=== PATIENT | male | born 2000 | race Caucasian/White ===

== ENCOUNTER 2022-03-05 19:17 | Emergency (ER) | payer OTHER, SELFPAY ==
--- NOTE | 2022-03-05 19:52 | ED.MALEGU ---
HPI - Male Genitourinary General Chief complaint: Urogenital-Male Stated complaint: uti complaint Time Seen by Provider: 03/05/22 19:52 Source: patient and RN notes reviewed Mode of arrival: ambulatory Limitations: no limitations History of Present Illness HPI Narrative: 21-year-old male transitioning from female, presented for complaint of burning with urination, brown /bloody discharge and suprapubic abdominal pain over the last 3 days. Endorses concern for STD/UTI. Denies urgency, frequency, flank pain, nausea, vomiting, fever or chills. Reports wearing a sanitary pad for the drainage, and states no longer has menses. Endorses new female sexual partner but denies known exposure. Related Data Home Medications Medication Instructions Recorded Confirmed bupropion HCl 150 mg 24 hr tablet, 150 mg PO QAM 03/05/22 03/05/22 extended release (Wellbutrin XL) levocetirizine 5 mg tablet (Xyzal) 5 mg PO DAILY 03/05/22 03/05/22 metoprolol succinate 25 mg 25 mg PO DAILY 03/05/22 03/05/22 tablet,extended release 24 hr montelukast 10 mg tablet 10 mg PO DAILY 03/05/22 03/05/22 sertraline 50 mg tablet 50 mg PO DAILY 03/05/22 03/05/22 testosterone 20.25 mg/1.25 gram 1 pump topical DAILY 03/05/22 03/05/22 (1.62 %) transdermal gel pump Allergies Allergy/AdvReac Type Severity Reaction Status Date / Time No Known Allergies Allergy Verified 03/05/22 19:54 Review of Systems Review of Systems: CONSTITUTIONAL: Denies body aches, fever, chills, or sweats. CARDIOVASCULAR: Denies chest pain, palpitations, or edema. RESPIRATORY: Denies cough or dyspnea. GASTROINTESTINAL: Denies abdominal pain, nausea, vomiting, or diarrhea. GENITOURINARY: Per HPI SKIN: Denies rash, itching, or wounds. MUSCULOSKELETAL: Denies back pain or myalgia. PMFSH Comments At time of signature, I have reviewed and agree with nursing past medical, surgical, social and family history unless otherwise noted. Please see nursing chart for further information. There is no relevant family history pertinent to the presenting complaint Exam Narrative: GENERAL: Well-appearing ENT: Mucous membranes pink and moist. NECK: Normal AROM. Supple. CHEST: No respiratory distress. Clear to auscultation. HEART: Regular rate and rhythm. ABDOMEN: Soft, suprapubic tenderness, nondistended, normal active bowel sounds. No CVA tenderness SKIN: Warm, dry, no rash. NEURO: Alert and oriented x3. PSYCH: Normal affect. Course Course Emergency Course: Patient is aware of diagnosis, understands and agrees to treatment plan. Anticipatory guidance given. Patient agrees to follow-up as directed and is aware of reasons to seek care at the emergency department. Portions of this record may have been created with voice recognition software Level of Care: Express Care Visit Vital Signs Vital signs: Reviewed MDM - Male Genitourinary MDM Narrative Medical decision making narrative: Patient presenting with concern for STD/UTI. Urine specimen collected for UA, GC, chlamydia, trich. Informed Pt will be contacted w/ results when they become available if they are positive. Discussed with patient that it takes up to 7 days for results of cultures to be released and explained that we may treat empirically at this time. Agreeable to treatment at this time, for gonorrhea and Chlamydia. Aware he may need Rx to treat for UTI and/or trich. I have instructed the patient to return to the ER at any time if there are any new or worsening symptoms. The patient expressed understanding of and agreement with this plan. Differential Diagnosis Differential diagnosis: Likely urinary tract infection and other (std, cervicitis) Discharge Plan Discharge Clinical Impression: Concern about STD in male without diagnosis Patient Disposition: Home, Self-Care Condition: Stable Instructions: Sexually Transmitted Diseases (ED) Additional Instructions: Your urine sample today was sen
[2022-03-05] MEDS: cefTRIAXone 500 MG, LIDOCAINE HCL 1% LOCAL INJ 1 ML IM (20:38)
[2022-03-05 21:14] VITALS: BP 121/68; PULSE 87; RESP 18; TEMP 36.9; O2SAT 100
== END 2022-03-05 20:53 | disposition home or self-care (01) ==
PROVIDERS: Emergency Provider Nurse Practitioner Family; PCP Family Medicine
DX: Z20.2 Contact with and (suspected) exposure to infections with a predominantly sexual mode of transmission (principal); J45.909 Unspecified asthma, uncomplicated; F84.0 Autistic disorder; F41.9 Anxiety disorder, unspecified; F32.A Depression, unspecified
CPT/HCPCS: 87077; 87086; 87186; 87491; 87591; 87661; 96372; 99213; G0463; J0696

== ENCOUNTER 2022-08-01 22:54 | Emergency (ER) | payer OTHER, SELFPAY ==
--- NOTE | ~2022-08-01 | XR_ITS ---
Clinical Indication: Tachycardia PA and lateral views of the chest: Comparison: None Findings: The lungs are clear, without evidence of focal consolidation or pleural effusion. Cardiome diastinal silhouette is within normal limits. Bones and soft tissues are unremarkable. Impression: Normal chest. Reviewed, dictated and finalized at location . Impression: Normal chest.
--- NOTE | 2022-08-01 22:55 | ECG_ITS ---
Measurements Intervals [place] Rate: 144 P: 82 SD: 137 QRS: 64 QRSD: 88 T: 63 QT: 342 QTc: 530 Interpretive Statements SINUS TACHYCARDIA NONSPECIFIC T-WAVE ABNORMALITY- INFERIOR LEADS ABNORMAL ECG NO PREVIOUS ECG AVAILABLE FOR COMPARISON Electronically Signed On 08-02-2022 6:20:35 CDT by Guilherme Lee D.O.
[2022-08-01 23:01] VITALS: BP 142/80; PULSE 147; RESP 20; TEMP 37.7; O2SAT 100
[2022-08-01 23:13] LABS: Basophils Absolute Auto 0.1 K/mm3 (0.0-0.1); Basophils Percent Auto 0.5 % (0.2-1.2); Eosinophils Absolute Auto 0.2 K/mm3 (0-0.3); Eosinophils Percent Auto 1.9 % (0-4.4); Hematocrit 45.6 % (42.0-52.0); Hemoglobin 15.3 g/dL (14.0-18.0); Immature Granulocyte Absolute 0.02 K/mm3 (0.00-0.031); Immature Granulocyte Percent A 0.2 % (0-0.5); Lymphocytes Percent Auto 34.7 % (18.3-44.2); Mean Corpuscular HGB Conc 33.6 g/dl (32-36); Mean Corpuscular Hemoglobin 29.8 pg (26-34); Mean Corpuscular Volume 88.9 fl (80-100); Mean Platelet Volume 8.9 fl (7.4-10.4); Monocytes Absolute Auto 1.1 K/mm3 (0.1-0.6); Monocytes Percent Auto 9.7 % (2.6-8.5); Neutrophils Absolute Auto 6.3 K/mm3 (1.3-6.7); Platelet Count Result 277 k/mm3 (150-375); Red Blood Count 5.13 M/mm3 (4.6-6.20); Red Cell Distribution Width 12.3 % (11.5-14.5); White Blood Count 11.8 K/mm3 (4.5-10.0)
[2022-08-01 23:23] LABS: Prothrombin Time 13.3 Seconds (11.1-14.7)
[2022-08-01 23:24] LABS: Partial Thromboplastin Time 32.5 SECONDS (22.3-36.8)
[2022-08-01 23:28] LABS: Alanine Aminotransferase 31 U/L (6-50); Albumin Level 4.9 g/dL (3.5-5.1); Alkaline Phosphatase 72 U/L (38-126); Anion Gap 9 mmol/L (8-16); Aspartate Amino Transferase 31 U/L (17-59); Bilirubin,Total 0.6 mg/dL (0.2-1.3); Blood Urea Nitrogen 11 mg/dL (9-20); Calcium 8.8 mg/dL (8.4-10.2); Carbon Dioxide 30 mmol/L (22-30); Chloride 99 mmol/L (98-107); Estimated CRCL calculation 116 ml/min; Estimated Glomerular Filt Rate > 60; Glucose 116 mg/dL (65-110); Lipase 203 U/L (23-300); Potassium 3.5 mmol/L (3.4-5.0); Sodium 138 mmol/L (137-145)
[2022-08-01] MEDS: ASPIRIN 81 MG CHEWABLE TABLET 324 MG PO (23:28)
[2022-08-01 23:39] LABS: Troponin I < 0.012 ng/mL (0.000-0.034)
[2022-08-02 00:32] VITALS: PULSE 121
[2022-08-02] MEDS: METOPROLOL TARTRATE INJ 5 MG/5 ML VIAL IV PUSH (00:32)
[2022-08-02] MEDS: SODIUM CHLORIDE 0.9% IV 2,000 ML 999 ML IV CONT (00:33)
[2022-08-02] MEDS: LORazepam INJ (*CRX) 2 MG/ML VIAL 0.5 MG IV PUSH (00:38)
[2022-08-02 00:42] LABS: NT Pro B Type Natriuretic Pept < 20 pg/mL (19.9-100)
[2022-08-02 00:52] VITALS: BP 115/69; PULSE 111; RESP 17; O2SAT 98
[2022-08-02 00:52] LABS: D Dimer 0.34 ug/mL (<0.48)
--- NOTE | 2022-08-02 01:02 | ED.GENADULT ---
HPI - General Adult General Chief complaint: Chest Pain Stated complaint: elevated heart rate Time Seen by Provider: 08/01/22 23:15 History of Present Illness HPI narrative: This is a 21-year-old transgender female to male using hormone replacement presenting with palpitations. Patient has been diagnosed with idiopathic tachycardia by his primary care physician and has been placed on metoprolol. Patient noticed that several hours prior to arrival he started to have palpitations that were at the top of his chest, there nonradiating, 4/10 intensity and getting better. Patient states the symptoms improved when he laid down and tried to relax. The symptoms were preceded by taking a THC edible. They are associated with anxiety and some shortness of breath. No wheezing, no fevers no chills no chest pain, no lower extremity edema, no recent trauma or surgeries Related Data Home Medications Medication Instructions Recorded Confirmed bupropion HCl 150 mg 24 hr tablet, 150 mg PO QAM 03/05/22 03/05/22 extended release (Wellbutrin XL) levocetirizine 5 mg tablet (Xyzal) 5 mg PO DAILY 03/05/22 03/05/22 metoprolol succinate 25 mg 25 mg PO DAILY 03/05/22 03/05/22 tablet,extended release 24 hr montelukast 10 mg tablet 10 mg PO DAILY 03/05/22 03/05/22 sertraline 50 mg tablet 50 mg PO DAILY 03/05/22 03/05/22 testosterone 1 pump topical DAILY 03/05/22 03/05/22 Allergies Allergy/AdvReac Type Severity Reaction Status Date / Time No Known Allergies Allergy Verified 03/05/22 19:54 [facility] Past Medical History Medical History Asthma Tachycardia Transgender person on hormone therapy Exam Narrative: APPEARANCE: No apparent distress. resting comfortably Head: atraumatic. EYES: EOMI, NOSE: Atraumatic NECK: Trachea midline RESPIRATORY: No increased rate of breathing clear to auscultation CARDIOVASCULAR: RRR, no peripheral edema ABDOMINAL: Non-distended MUSCULOSKELETAl: No obvious deformities NEURO: Alert. Moving 4/4 extremities SKIN:: Warm, dry. Normal color PSYCHIATRIC: Normal affect Course Vital Signs Vital signs: Vital Signs Temperature 99.8 F H 08/01/22 23:01 Pulse Rate 147 H 05/17/23 23:01 Respiratory Rate 20 08/01/22 23:01 Blood Pressure 142/80 H 08/01/22 23:01 Pulse Oximetry 100 08/01/22 23:01 Oxygen Delivery Room Air 08/01/22 23:01 Temperature 99.8 F H 08/01/22 23:01 Pulse Rate 111 H 08/02/22 00:52 Respiratory Rate 17 08/02/22 00:52 Blood Pressure 115/69 08/02/22 00:52 Pulse Oximetry 98 08/02/22 00:52 Oxygen Delivery Room Air 08/01/22 23:01 Medical Decision Making MDM Narrative Medical decision making narrative: -Presentation: 21-year-old transgender on testosterone therapy presenting with tachycardia and shortness of breath. -DDX includes but is not limited to: Pulmonary embolism, anxiety, Idiopathic tachycardia, SVT, THC side effect -Co-morbidities complicating care: gender reassignment with hormone therapy, asthma, anxiety -Social determinants of health: patient works at [employer] and lives with his girlfriend -External Chart Review: none -Hx from independent Sources: girlfriend at bedside -Discussion of Management/Consultants: none -Independent interpretation of studies: lab work including CBC BMP troponins BNP and D-dimer were all within normal limits. Chest x-ray unremarkable Independent EKG interpretation: Rhythm [sinus], Rate [144], [place] -[normal], AR -[normal], QRS [narrow], QTC [normal], T waves -[negative for concerning inversions], ST Segments - [Negative for concerning elevations] Final interpretations: [Normal Sinus Rhythm] Dx tests considered but not ordered: none -Procedures: none -Interventions: 2 L normal saline, 0.5 mg Ativan, 5 mg IV Lopressor -Shared decision making / Disposition: on re-evaluation the patient's heart rate is improved 107. The patient's palpitat
[2022-08-02 01:20] VITALS: BP 114/75; PULSE 107; RESP 18; O2SAT 97
[2022-08-02 02:28] VITALS: BP 120/58; PULSE 106; RESP 20; O2SAT 97
== END 2022-08-02 02:29 | disposition home or self-care (01) ==
PROVIDERS: Emergency Provider Emergency Medicine; PCP Family Medicine
DX: R00.2 Palpitations (principal); R00.0 Tachycardia, unspecified; R06.02 Shortness of breath; Z79.890 Hormone replacement therapy
CPT/HCPCS: 36415; 71046; 80053; 83690; 83880; 84484; 85025; 85380; 85610; 85730; 93005; 96361; 96374; 96375; 99284; A9270; J2060; J7030

== ENCOUNTER 2022-12-27 03:41 | Emergency (ER) | payer OTHER, SELFPAY ==
--- NOTE | ~2022-12-27 | CT_ITS ---
Non-contrast CT scan of the Abdomen and Pelvis Clinical indication: Flank pain Technique: 2.5 mm axial scans were obtained through the abdomen and pelvis without intravenous or or al contrast. Dose reduction technique was used on this scan by utilizing automated exposure control a nd iterative reconstruction technique. The dose-length product (DLP) was 424.85 mGy-cm. Findings: Images through the lung bases reveal no abnormalities. There are 2 stones in the very proximal right ureter, measuring 4 mm and 2 mm in diameter (axial imag es 80, 82 respectively). There is minimal right hydronephrosis. No left renal or left ureteral stone. No left hydronephrosis. The liver, spleen, pancreas, gallbladder, and adrenals appear normal. There is no aortic aneurysm. There is no evidence of bowel obstruction. No right lower quadrant inflammatory change identified. Images through the pelvis were performed. There is no evidence of ascites or lymphadenopathy. Urinary bladder unremarkable. No definite adnexal mass seen. Impression: 4 mm and 2 mm stones in the proximal right ureter, as detailed above, with minimal right hydronephros is. Reviewed, dictated and finalized at location M. Impression: 4 mm and 2 mm stones in the proximal right ureter, as detailed above, with mini mal right hydronephrosis.
[2022-12-27 03:44] VITALS: BP 132/84; PULSE 75; RESP 18; TEMP 37.1; O2SAT 100
[2022-12-27 04:04] VITALS: BP 122/73; PULSE 84; RESP 18; O2SAT 100
[2022-12-27] MEDS: ONDANSETRON INJ 4 MG/2 ML VIAL IV PUSH (04:42)
[2022-12-27] MEDS: SODIUM CHLORIDE 0.9% IV 1,000 ML 999 ML IV CONT (04:42)
[2022-12-27 04:54] LABS: Basophils Absolute Auto 0.1 K/mm3 (0.0-0.1); Basophils Percent Auto 1.1 % (0.2-1.2); Eosinophils Absolute Auto 0.3 K/mm3 (0-0.3); Eosinophils Percent Auto 3.1 % (0-4.4); Hematocrit 42.9 % (42.0-52.0); Hemoglobin 14.3 g/dL (14.0-18.0); Immature Granulocyte Absolute 0.02 K/mm3 (0.00-0.031); Immature Granulocyte Percent A 0.3 % (0-0.5); Lymphocytes Absolute Auto 2.15 K/mm3 (0.9-3.2); Mean Corpuscular HGB Conc 33.3 g/dl (32-36); Mean Corpuscular Hemoglobin 29.5 pg (26-34); Mean Corpuscular Volume 88.5 fl (80-100); Mean Platelet Volume 9.5 fl (7.4-10.4); Monocytes Absolute Auto 0.9 K/mm3 (0.1-0.6); Monocytes Percent Auto 10.9 % (2.6-8.5); Neutrophils Absolute Auto 4.6 K/mm3 (1.3-6.7); Neutrophils Percent Auto 57.6 % (45.5-73.1); Platelet Count Result 281 k/mm3 (150-375); Red Blood Count 4.85 M/mm3 (4.6-6.20); Red Cell Distribution Width 12.2 % (11.5-14.5)
[2022-12-27] MEDS: MORPHINE SULFATE (*CRX) 4 MG/ML INJ IV PUSH (05:02)
[2022-12-27] MEDS: diphenhydrAMINE HCl INJ 50 MG/ML VIAL 25 MG IV PUSH (05:26)
[2022-12-27 05:28] LABS: Appearance Urine Turbid (Clear); Bacteria Urine 4+ /hpf; Bilirubin Urine 1+ (Negative); Blood Urine 3+ (Negative); Calcium Oxalate Crystals Urine Present /hpf; Color Urine Dark Yellow (Yellow); Glucose Urine UA Trace mg/dL (Negative); Ketones Urine Negative (Negative); Leukocyte Esterase Ur 1+ LEU/UL (Negative); Need Manual Microscopic Reviewed; Nitrate Urine Negative (Negative); Non Pathogenic Casts 0-2; Protein Urine 2+ mg/dL (Negative); RBC Urine >100 /hpf (0-2); Specific Grav Ur 1.031 (1.001-1.035); Squamous Epithelial Cell Urine Few /hpf (Few); pH Urine 5.5 (5.0-9.0)
[2022-12-27 05:32] VITALS: BP 113/70; PULSE 82; RESP 18; O2SAT 100
[2022-12-27 05:32] LABS: Add Urine Microscopic? YES
[2022-12-27 05:36] LABS: Alanine Aminotransferase 27 U/L (6-50); Albumin Level 3.9 g/dL (3.5-5.1); Alkaline Phosphatase 68 U/L (38-126); Anion Gap 5 mmol/L (8-16); Aspartate Amino Transferase 27 U/L (17-59); Bilirubin,Total 0.5 mg/dL (0.2-1.3); Blood Urea Nitrogen 13 mg/dL (9-20); Calcium 8.2 mg/dL (8.4-10.2); Carbon Dioxide 28 mmol/L (22-30); Chloride 104 mmol/L (98-107); Estimated CRCL calculation 115 ml/min; Estimated Glomerular Filt Rate > 60; Glucose 118 mg/dL (65-110); Lipase 133 U/L (23-300); Potassium 3.3 mmol/L (3.4-5.0); Sodium 137 mmol/L (137-145)
--- NOTE | 2022-12-27 05:42 | ED.GENADULT ---
HPI - General Adult General Chief complaint: Urogenital-Male Stated complaint: flank pain Time Seen by Provider: 12/27/22 04:10 History of Present Illness HPI narrative: Patient a 20-year-old that presents emergency department with chief complaint of right-sided flank pain. Patient reports that they have history of kidney stone in the past and reports that started having pain in the right flank several days ago patient reports the pain is not improved by anything reports that they are concerned that he may have a kidney stone. The patient denies fever Related Data Home Medications Medication Instructions Recorded Confirmed bupropion HCl 150 mg 24 hr tablet, 150 mg PO QAM 03/05/22 03/05/22 extended release (Wellbutrin XL) levocetirizine 5 mg tablet (Xyzal) 5 mg PO DAILY 03/05/22 03/05/22 metoprolol succinate 25 mg 25 mg PO DAILY 03/05/22 03/05/22 tablet,extended release 24 hr montelukast 10 mg tablet 10 mg PO DAILY 03/05/22 03/05/22 sertraline 50 mg tablet 50 mg PO DAILY 03/05/22 03/05/22 testosterone 1 pump topical DAILY 03/05/22 03/05/22 Allergies Allergy/AdvReac Type Severity Reaction Status Date / Time No Known Allergies Allergy Verified 12/27/22 04:09 Review of Systems Review of Systems: A 10 system review of systems was completed on the patient and is negative except for what is stated in the HPI. Nursing and ancillary documentation was reviewed. PMFSH Past Medical History Medical History Asthma Tachycardia Transgender person on hormone therapy Exam Narrative: GENERAL: Well-appearing, well-nourished, and in no acute distress. HEAD: Normocephalic, atraumatic. EYES: PERRLA and EOMI. ENT: Nares clear, no rhinorrhea or epistaxis. Mucous membranes moist. NECK: Supple. CHEST: Clear to auscultation. No respiratory distress. HEART: Regular rate and rhythm. No murmur heard. Normal peripheral pulses. ABDOMEN: Soft, nontender, nondistended, normal active bowel sounds. EXTREMITIES: Normal range of motion. No edema. SKIN: Warm, dry, no rash. NEURO: No focal deficits. Alert and oriented x3. PSYCH: Normal mood and affect. Course Vital Signs Vital signs: Vital Signs Temperature 37.1 C 12/27/22 03:44 Pulse Rate 75 12/27/22 03:44 Respiratory Rate 18 12/27/22 03:44 Blood Pressure 132/84 12/27/22 03:44 Pulse Oximetry 100 12/27/22 03:44 Oxygen Delivery Room Air 12/27/22 03:44 Temperature 37.1 C 12/27/22 03:44 Pulse Rate 79 12/27/22 06:18 Respiratory Rate 18 12/27/22 06:18 Blood Pressure 112/60 12/27/22 06:18 Pulse Oximetry 100 12/27/22 06:18 Oxygen Delivery Room Air 12/27/22 03:44 Medical Decision Making MDM Narrative Medical decision making narrative: Differential diagnosis includes UTI, pyelonephritis, ureterolithiasis, sepsis, Laboratory studies were obtained which showed normal CBC CMP showed a renal function creatinine 0.7 urinalysis showed greater than 100 RBCs but 11-20 white blood cells in the urine CT scan of the abdomen pelvis showed a 4 mm and a 2 mm stone Patient is feeling much better at this time patient be started on Keflex and given a urine strainer started on Flomax and given a prescription for [place] and Zofran Vital Signs Vital Signs: Vital Signs Temperature 37.1 C 12/27/22 03:44 Pulse Rate 75 12/27/22 03:44 Respiratory Rate 18 12/27/22 03:44 Blood Pressure 132/84 12/27/22 03:44 Pulse Oximetry 100 12/27/22 03:44 Oxygen Delivery Room Air 12/27/22 03:44 Temperature 37.1 C 12/27/22 03:44 Pulse Rate 79 12/27/22 06:18 Respiratory Rate 18 12/27/22 06:18 Blood Pressure 112/60 12/27/22 06:18 Pulse Oximetry 100 12/27/22 06:18 Oxygen Delivery Room Air 12/27/22 03:44 Lab Data 12/27/22 04:44 12/27/22 05:15 Labs: Lab Results 12/27/22 12/27/22 Range/Units 04:44 05:15 WBC 8.0
[2022-12-27 06:18] VITALS: BP 112/60; PULSE 79; RESP 18; O2SAT 100
[2022-12-27 06:51] VITALS: BP 112/65; PULSE 73; RESP 17; O2SAT 98
== END 2022-12-27 06:43 | disposition home or self-care (01) ==
PROVIDERS: Emergency Provider Emergency Medicine; PCP Family Medicine
DX: N13.2 Hydronephrosis with renal and ureteral calculous obstruction (principal); N39.0 Urinary tract infection, site not specified; J45.909 Unspecified asthma, uncomplicated; Z79.890 Hormone replacement therapy; Z87.442 Personal history of urinary calculi
CPT/HCPCS: 36415; 74176; 80053; 81001; 83690; 85025; 87077; 87086; 87186; 96361; 96374; 96375; 99284; J1200; J2270; J2405; J7030